=== PATIENT | male | born 1970 | race Caucasian/White ===

== ENCOUNTER 2017-09-06 09:09 | Emergency (ER) | payer MEDICAID ==
[~2017-09-06] VITALS: Ht 177.8 cm; Wt 70.0 kg
[2017-09-06] MEDS ORDERED: METHOCARBAM500 MG PO (09:40)
[2017-09-06] MEDS ORDERED: SODIUM PO (09:41)
[2017-09-06] MEDS ORDERED: OXYCODONE HCL5 MG PO (09:41)
[2017-09-06 10:08] LABS: HEMATOCRIT 25.6 % (39.0-50.0); HEMOGLOBIN 7.8 g/dl (14.0-18.0); IMMATURE GRANULOCYTES 0.3 % (0.0-1.0); MEAN CELL VOLUME 96.6 fL CALC (80.0-100.0); MEAN CORPUSCULAR HGB 29.4 pG CALC (26.0-32.0); MEAN CORPUSCULAR HGB CONC 30.5 g/L CALC (32.0-36.0); NEUT# 5.87 thou/uL (1.82-7.42); RED BLOOD COUNT 2.65 mill/uL (4.70-6.10)
[2017-09-06 10:11] LABS: ALBUMIN 2.7 g/dL (3.2-5.0); ALKALINE PHOSPHATASE 259 u/l (38-126); ANION GAP 18 (6-22 (CALC)); BILIRUBIN, TOTAL 0.1 mg/dL (0.0-1.4); BUN 20 mg/dL (9-20); BUN/CREATININE RATIO 17 (12-20 (CALC)); CARBON DIOXIDE 15 mmol/l (22-30); CHLORIDE 115 mmol/l (95-108); CREATININE 1.1 mg/dL (0.7-1.3); GFR > 60 ML/MIN (>=60 (CALC)); GFR FOR AFR.AMER. > 60 ML/MIN (>=60 (CALC)); SGOT/AST 20 u/l (17-59); SGPT/ALT 29 u/l (21-72); SODIUM 141 mmol/l (137-146); TOTAL PROTEIN 6.5 g/dL (6.3-8.2)
[2017-09-06 10:21] LABS: POTASSIUM 6.6 mmol/l (3.5-5.1)
[2017-09-06 11:45] VITALS: BP 136/80
[2017-09-10] MEDS ORDERED: METFORMIN500 MG PO (08:40)
[2017-09-10] MEDS ORDERED: LASIX 40 MG40 MG/TAB PO (08:41)
[2017-09-10] MEDS ORDERED: CUBICIN RF500 MG IV (08:47)
== END 2017-09-06 11:33 | disposition left against medical advice (07) | DRG 641 ==
LOC: ED 09:09
PROVIDERS: Emergency Medicine
DX: E87.5 Hyperkalemia (principal); E87.2 Acidosis; D64.9 Anemia, unspecified; Z91.19 Patient's noncompliance with other medical treatment and regimen; R19.7 Diarrhea, unspecified; K90.0 Celiac disease; Z89.421 Acquired absence of other right toe(s); R53.1 Weakness; R42 Dizziness and giddiness

== ENCOUNTER 2017-10-03 09:54 | Emergency (ER) | payer MEDICAID ==
[~2017-10-03] VITALS: Ht 177.8 cm; Wt 63.6 kg
[~2017-10-03 09:54] MED LIST: CUBICIN RF500 MG IV; LASIX 40 MG40 MG/TAB PO; METFORMIN500 MG PO; METHOCARBAM500 MG PO; OXYCODONE HCL5 MG PO; SODIUM PO
[2017-10-03 11:12] LABS: URINE BILIRUBIN - DIPSTICK NEGATIVE (NEGATIVE); URINE BLOOD DIPSTICK MODERATE (NEGATIVE); URINE COLOR YELLOW; URINE GLUCOSE - DIPSTICK NEGATIVE (NEGATIVE); URINE KETONE NEGATIVE (NEGATIVE); URINE NITRITE - DIPSTICK NEGATIVE (Negative); URINE PH 5.5 (4.5-8.0); URINE PROTEIN - DIPSTICK >=300 mg/dL (NEG-TRACE); URINE SPECIFIC GRAVITY 1.025; URINE UROBILINOGEN - DIPSTICK 0.2 E.U./dL (0.2)
[2017-10-03 11:13] LABS: URINE BACTERIA MANY hpf; URINE CLARITY CLOUDY; URINE EPITHELIAL CELLS MODERATE EPI/hpf (0-FEW); URINE LEUK ESTERASE LARGE (NEGATIVE); URINE WBC 20-50 WBC/hpf (0-5)
[2017-10-03] MEDS ORDERED: OMNICEF300 M1 PO (11:25)
[2017-10-03 12:16] VITALS: BP 121/80
[2017-10-03] MEDS ORDERED: HYDROCO/APAP1 TA9 PO (12:18)
[2017-10-03] MEDS ORDERED: METFORMIN1000 MG PO (12:22)
== END 2017-10-03 12:40 | disposition home or self-care (01) | DRG 690 ==
LOC: ED 09:54
PROVIDERS: Family Medicine
DX: N39.0 Urinary tract infection, site not specified (principal); R30.0 Dysuria; B95.62 Methicillin resistant Staphylococcus aureus infection as the cause of diseases classified elsewhere